=== PATIENT | female | born 1965 | race Caucasian/White ===

== ENCOUNTER → 2021-11-02 | Outpatient (CLI) | payer OTHER ==
--- NOTE | 2021-11-02 14:31 | KCIC ---
MR LUMBAR SPINE WO [id number] History: Reason: Z87.39 / Spl. Instructions: BLE pain, numbness, tingling, burning. / History: Chroni c LBP and a feeling of shifting in lower spine x 4 mths. Technique: Multiplanar, multi sequential MR imaging was performed of the lumbar spine. Comparison: None Findings: Minimal retrolisthesis L5 on S1. Normal vertebral body height. No acute fracture. Conus terminates at the normal location. No evidence of nerve root clumping. L1-L2: No canal or neuroforaminal narrowing. L2-L3: No canal or neuroforaminal narrowing. L3-L4: Small disc bulge. Mild facet arthropathy, left greater than right. No canal narrowing. Mild s ubarticular recess narrowing. Mild right neuroforaminal narrowing due to right foraminal disc protrus ion. L4-L5: Small disc bulge. Mild facet arthropathy. No canal narrowing. Mild subacute recess narrowing. Mild bilateral neuroforaminal narrowing. L5-S1: Disc height loss. Minimal retrolisthesis. Small disc bulge. Mild facet arthropathy. No canal narrowing. Mild bilateral neuroforaminal narrowing. Impression: 1. Multilevel lumbar spondylosis most prominent L5-S1. 2. Mild L3-L4 and L4-5 subarticular recess narrowing. 3. Mild neuroforaminal narrowing, as described. Electronically signed by: Paul Garcia DO (11/02/2021 2:29 PM) [facility]
== END ==
LOC: KCIC MRI 11:15
PROVIDERS: ATTEND Family Medicine
DX: M47.817 Spondylosis without myelopathy or radiculopathy, lumbosacral region (principal); M48.07 Spinal stenosis, lumbosacral region; M48.8X6 Other specified spondylopathies, lumbar region; M51.27 Other intervertebral disc displacement, lumbosacral region; M51.37 Other intervertebral disc degeneration, lumbosacral region; Z87.39 Personal history of other diseases of the musculoskeletal system and connective tissue
CPT/HCPCS: 72148